=== PATIENT | female | born 1995 | race Caucasian/White ===

== ENCOUNTER 2017-11-13 12:39 | Emergency (ER) | payer BC ==
[2017-11-13 13:07] VITALS: BP 114/75
--- NOTE | 2017-11-13 13:22 | UC ---
Throat Pain/Nasal Srinivas HPI - HPI Summary HPI Summary: Pt presents with her cousin. The patient does not speak Korean - the extent of this history is based on translation through the cousin who does speak Korean. Cousin tells me that since yesterday pt has had mouth pain. When asked where to pain is - pt pulls down her lower lip and points to her lower front gingiva. Has not seen a dentist ever. Denies fever, chills, ST, cough, SOB, chest pain, injury, abdominal pain, N/V/D/C. Denies any hx of STD or HIV. Denies illicit drug use. - History of Current Complaint Chief Complaint: UCGeneralIllness Stated Complaint: RASH AND PAIN IN MOUTH Time Seen by Provider: 11/13/17 13:21 Hx Obtained From: Patient Hx Last Menstrual Period: 11/12/17 Onset/Duration: Gradual Onset Severity: Moderate Pain Intensity: 8 Pain Scale Used: 0-10 Numeric - Allergies/Home Medications Allergies/Adverse Reactions: Allergies Allergy/AdvReac Type Severity Reaction Status Date / Time No Known Allergies Allergy Verified 11/13/17 13:07 PMH/Surg Hx/FS Hx/Imm Hx Previously Healthy: Yes - Surgical History Surgical History: None - Social History Occupation: Employed Full-time Lives: With Family Alcohol Use: None Substance Use Type: None Smoking Status (MU): Never Smoked Tobacco - Immunization History Most Recent Influenza Vaccination: 09/2017 Review of Systems Constitutional: Negative Skin: Negative Eyes: Negative ENT: Dental Pain Respiratory: Negative Cardiovascular: Negative Gastrointestinal: Negative All Other Systems Reviewed And Are Negative: Yes Physical Exam Triage Information Reviewed: Yes Appearance: Well-Appearing, No Pain Distress, Thin Vital Signs: Initial Vital Signs Temp 98.9 F 11/13/17 13:02 Pulse 89 11/13/17 13:02 Resp 16 11/13/17 13:02 BP 114/75 11/13/17 13:02 Pulse Ox 100 11/13/17 13:02 Vital Signs Reviewed: Yes Eyes: Positive: Conjunctiva Clear, Other: - EOMI. PERRLA.. Negative: Conjunctiva Inflamed, Discharge ENT: Positive: Hearing grossly normal, Pharynx normal, TMs normal, Uvula midline. Negative: Pharyngeal erythema, Nasal congestion, Nasal drainage, TM bulging, TM dull, TM red, Tonsillar swelling, Tonsillar exudate, Muffled voice, Hoarse voice, Sinus tenderness Dental: Positive: Percussion Tenderness @ - tooth 25, 26, 27 gingiva., Gross Decay/Caries @ - Throughout, Cellulitis @ - Tooth 25, 26, 27 gingiva, Other: - There is mild white plaque on the midline of the tongue and on the buccal muscosa. No ulcers, bleeding, discharge, or odors.. Negative: Dental Fracture @ , Abscess @, Cervical Lymphadenopathy, Bleeding Neck: Positive: Supple, Nontender, No Lymphadenopathy Respiratory: Positive: Chest non-tender, Lungs clear, Normal breath sounds, No respiratory distress, No accessory muscle use Cardiovascular: Positive: RRR, No Murmur, Pulses Normal Abdomen Description: Positive: Nontender, No Organomegaly, Soft. Negative: CVA Tenderness (R), CVA Tenderness (L), Distended, Guarding Bowel Sounds: Positive: Present Neurological: Positive: Alert Psychological: Positive: Age Appropriate Behavior Skin: Negative: rashes Throat Pain/Nasal Course/Dx - Course Course Of Treatment: Suspect gingivitis vs oral candidiasis. Will treat with magic mouthwash and nystatin - advised to importance of dental f/u. - Differential Dx/Diagnosis Provider Diagnoses: Gingivitis. Oral candidiasis Discharge - Discharge Plan Condition: Stable Disposition: HOME Prescriptions: Magic Mouth Was-REBECCA/MAAL/LIDO* 5 ml SWISH SPIT TID PRN #105 ml PRN Reason: Pain Nystatin SUSPENSION ORAL SYR* 4 ml PO QID #112 ml Patient Education Materials: Gingivitis (ED), Oral Candidiasis (ED) Referrals: Luiz Denton MD [Primary Care Provider] - Additional Instructions: If you develop a fever, SOB, chest pain, new or worsening symptoms - please call your PCP or go to the ED.
== END 2017-11-13 13:47 | disposition home or self-care (01) ==
LOC: UCEAST 12:39
DX: B37.0 Candidal stomatitis (principal); K05.10 Chronic gingivitis, plaque induced; K02.9 Dental caries, unspecified
CPT/HCPCS: 99202; G0463